=== PATIENT | male | born 1960 | race African-American/Black ===

== ENCOUNTER → 2017-05-03 | Outpatient (CLI) | payer MEDICARE ==
--- NOTE | 2017-05-06 18:37 | PCVCIMAG ---
APPROVED REPORT Study performed: 05/03/2017 08:09:43 EXAM: Comprehensive 2D, Doppler, and color-flow Echocardiogram Patient Location: Echo lab Other Information Study Quality: Adequate Risk Factors: Cardiac Risk Factors: HTN, SOB Indications Diabetes Dyspnea Morbid Obesity, Thoracic Aortic Aneurysm 2D Dimensions LVEF(%): 18.10 (>50%) IVSd: 10.99 (7-11mm)LVOT Diam: 24.18 (18-24mm) LVDd: 65.46 mm PWd: 11.21 (7-11mm)Ascending Ao: 43.94 (22-36mm) LVDs: 59.96 (25-40mm) Left Atrium: 47.14 (27-40mm) Aortic Root: 40.82 mm LV Single Plane 4CH: 37.06 % LV Single Plane 2CH: 33.74 %Burris's LVEF: 18.10 % Biplane EF: 34.8 % Volumes Left Atrial Volume (Systole) Single Plane 4CH: 117.70 mLSingle Plane 2CH: 175.93 mL LA ESV Index: 50.00 mL/m2 Aortic Valve AoV Peak Isiah.: 1.42 m/s AO Peak Gr.: 8.08 mmHgLVOT Max P.98 mmHg LVOT Max V: 0.86 m/s AYLA Vmax: 2.79 cm2 Mitral Valve E/A Ratio: 2.20 MV Decel. Time: 166.54 ms MV E Max Isiah.: 1.04 m/s MV A Isiah.: 0.47 m/s IVRT: 100.35 ms Pulmonary Valve PV Peak Isiah.: 0.95 m/sPV Peak Gr.: 3.61 mmHg Pulmonary Vein P Vein S: 0.40 m/sP Vein A: 0.25 m/s P Vein D: 0.45 m/sP Vein A Dur.: 148.8 msec Tricuspid Valve TR Peak Isiah.: 2.50 m/s TR Peak Gr.: 25.04 mmHg Left Ventricle Left ventricle is dilated to 6.5 cm. There is normal LV segmental wall motion. There is normal left ventricular wall thickness. Left ventricular systolic function is moderately decreased. LVEF is 35%. Grade II - pseudonormal filling dynamics. Right Ventricle The right ventricle is normal size. The right ventricular systolic function is normal. Atria Left atrium is severely dilated. Right atrium is mildly dilated. Aortic Valve The Aortic valve is sclerotic. No aortic regurgitation is present. There is no aortic valvular stenosis. Mitral Valve The mitral valve is normal in structure. There is no mitral valve regurgitation noted. No evidence of mitral valve stenosis. Tricuspid Valve The tricuspid valve is normal in structure. Trace tricuspid regurgitation with PAP of 32 mmHg. Pulmonic Valve The pulmonary valve is normal in structure. There is no pulmonic valvular regurgitation. Great Vessels The aortic root is dilated to 4.1 cm and the ascending aorta is dilated to 4.4 cm. IVC is normal in size and collapses with >50% inspiration Pericardium There is no pericardial effusion. <Conclusion> Left ventricle is dilated to 6.5 cm. LVEF is 35%. Grade II - pseudonormal filling dynamics. Left atrium is severely dilated. Right atrium is mildly dilated. There is no aortic valvular stenosis. The aortic root is dilated to 4.1 cm and the ascending aorta is dilated to 4.4 cm. Trace tricuspid regurgitation with PAP of 32 mmHg. There is no pericardial effusion.
== END | disposition home or self-care (01) ==
LOC: PCVCIMAG 08:20
PROVIDERS: ATTEND Internal Medicine Cardiovascular Disease
DX: I07.1 Rheumatic tricuspid insufficiency (principal); I35.0 Nonrheumatic aortic (valve) stenosis; I10 Essential (primary) hypertension; E11.9 Type 2 diabetes mellitus without complications; E66.01 Morbid (severe) obesity due to excess calories; I71.2 Thoracic aortic aneurysm, without rupture; E78.5 Hyperlipidemia, unspecified
CPT/HCPCS: 93306